=== PATIENT | female | born 1965 | race Caucasian/White ===

== ENCOUNTER → 2019-05-30 12:02 | Outpatient (BNVA) | payer OTHER, SELFPAY | PROVIDERS: Family Provider Nurse Practitioner Family; PCP Nurse Practitioner Family; Visit Provider Nurse Practitioner Family | DX: E89.0 Postprocedural hypothyroidism (principal); E55.9 Vitamin D deficiency, unspecified; Z79.899 Other long term (current) drug therapy; Z13.6 Encounter for screening for cardiovascular disorders; Z12.31 Encounter for screening mammogram for malignant neoplasm of breast; F33.0 Major depressive disorder, recurrent, mild; Z78.0 Asymptomatic menopausal state | CPT/HCPCS: 80053; 80061; 81001; 82306; 83036; 84443; 85025 ==

== ENCOUNTER 2019-07-04 10:56 | Outpatient (CLI) | payer OTHER, SELFPAY ==
--- NOTE | 2019-07-04 11:30 | MM_ITS ---
WS: [id number] BILATERAL SCREENING DIGITAL MAMMOGRAM WITH CAD HISTORY: breast cancer screening COMPARISON: 07/19/2015 Bilateral CC and MLO views submitted. Computer aided detection analyzed. Breast composition: The breasts are heterogeneously dense, which may obscure small masses. No suspici ous masses, microcalcifications or architectural distortion. MM/[id number] IMPRESSION: BI-RADS: 1-Negative FOLLOW UP: 1 Year Follow-up
== END 2019-07-04 10:57 | disposition home or self-care (01) ==
LOC: RADSHAW 10:56
PROVIDERS: Family Provider Nurse Practitioner Family; PCP Nurse Practitioner Family; Visit Provider Nurse Practitioner Family
DX: Z12.31 Encounter for screening mammogram for malignant neoplasm of breast (principal)
CPT/HCPCS: 77067

== ENCOUNTER → 2019-09-26 11:55 | Outpatient (BNVA) | payer OTHER, SELFPAY | PROVIDERS: Family Provider Nurse Practitioner Family; PCP Nurse Practitioner Family; Visit Provider Nurse Practitioner Family | DX: E07.9 Disorder of thyroid, unspecified (principal) | CPT/HCPCS: 82306; 84443 ==

== ENCOUNTER → 2020-01-02 11:15 | Outpatient (BNVA) | payer OTHER, SELFPAY | PROVIDERS: Family Provider Nurse Practitioner Family; PCP Nurse Practitioner Family; Visit Provider Nurse Practitioner Family | DX: E89.0 Postprocedural hypothyroidism (principal); F33.0 Major depressive disorder, recurrent, mild; F41.9 Anxiety disorder, unspecified | CPT/HCPCS: 84443 ==

== ENCOUNTER 2020-11-20 10:43 | Outpatient (CLI) | payer OTHER, SELFPAY ==
--- NOTE | 2020-11-20 11:00 | MM_ITS ---
WS: [id number] BILATERAL DIGITAL SCREENING MAMMOGRAPHY WITH CAD CLINICAL INFORMATION: Z12.31 - Encounter for screening mammogram for malignant neoplasm of breast HISTORY: Screening mammogram. No current complaints. COMPARISON: July 04, 2019 TECHNIQUE: Bilateral CC and MLO views. FINDINGS: The breasts are composed of heterogeneous fibroglandular density tissue, which can limit the detectio n of small underlying mass lesions. No suspicious mass, asymmetry, calcifications, or architectural d istortion. No evidence of malignancy. MM/[place] [id number] IMPRESSION: BI-RADS: 1-Negative FOLLOW UP: 1 Year Follow-up Recommend return to annual screening mammography.
== END 2020-11-20 10:44 | disposition home or self-care (01) ==
LOC: RADSHAW 10:46
PROVIDERS: PCP Nurse Practitioner Family; Visit Provider Nurse Practitioner Family
DX: Z12.31 Encounter for screening mammogram for malignant neoplasm of breast (principal)
CPT/HCPCS: 77067

== ENCOUNTER 2021-10-11 19:17 | Emergency (ER) | payer OTHER, SELFPAY ==
[2021-10-11 19:21] VITALS: BP 150/97; PULSE 75; RESP 16; TEMP 36.4; O2SAT 97; BMI 31.1
--- NOTE | 2021-10-11 19:34 | ED_ITS ---
HPI - Dental/Oral General: Chief complaint: Dental/Oral Stated complaint: Tooth pain Time Seen by Provider: 10/11/21 19:19 History of Present Illness: Patient is a 56-year-old female comes to the ED with dental pain. Patient has a crown on back left molar that cracked. She cracked one of her crowns when chewing on some food. She is here in the ED because she is having a lot of pain. Currently a 10 out of 10. Pain is located in back bottom left molar. She contacted her dentist and has an appointment set up with on November 06, but could possibly get her in earlier. Denies any other symptoms. Associated symptoms: Denies fever(s) or odynophagia Review of Systems Const: Denies: fever(s), chills or fatigue Eyes: Denies: change in vision or eye discomfort ENMT: Reports: dental pain; Denies: throat pain, odynophagia, nasal discharge or nasal congestion Card: Denies: chest pain, palpitations, edema, swelling of feet/ankles, dyspnea on exertion or orthopnea Resp: Denies: dyspnea, productive cough or non-productive cough GI: Denies: abdominal pain, nausea, vomiting, diarrhea, constipation or hematochezia : Denies: flank pain, dysuria or hematuria Musc: Denies: neck pain, back pain or extremity swelling Skin/Breast: Denies: rash or new lesions Neuro: Denies: headache(s), numbness in extremities or weakness in extremities PFS ED PFSH: Medical History Anxiety and depression Breast cancer screening by mammogram Depression Patient switched to Prozac in December 2019 Graves disease Patient was under the care of Dr. Gamboa in [place] prior to transferring to [facility]. [phone] Hypertension screen Hypothyroidism associated with surgical procedure Patient has history of Graves Disease, and surgical lobectomy of thyroid. Medication management Post-menopausal Patient takes daily estradiol without known adverse side effects. Surgical History History of lobectomy of thyroid Status post hysterectomy Family History Father Cancer Breast cancer Graves disease Unknown Cancer Social History Smoking and tobacco status: current every day smoker cigarettes Packs smoked per day: 0.5 Second hand smoke exposure: No Smoking risk assessment/counseling performed?: No Alcohol intake: never Desire information about alcohol rehabilitation?: No Counseling given: No Desire information about substance/drug rehabilitation?: No Counseling given: No Physical Exam Const: COMMON NORMALS: patient oriented x3 and alert GENERAL APPEARANCE: cooperative HENMT: COMMON NORMALS: normocephalic HEAD & SCALP: normocephalic MOUTH: Normal oral and palatal mucosa present TEETH & GINGIVA: Yes abnormal tooth and associated gingiva lower left third molar tender and other (Broken crown) THROAT: posterior oropharynx normal and uvula midline Neck/C-Spine: COMMON NORMALS: supple GENERAL: Yes normal visual inspection Resp: COMMON NORMALS: normal respiratory effort, No retractions, No use of accessory muscles and clear to auscultation bilaterally AUSCULTATION: clear to auscultation bilaterally Cardio: COMMON NORMALS: regular rate, regular rhythm, S1 normal heart sound present, S2 normal heart sound present, No gallops present (Cardio), No clicks present (Cardio), No murmurs present (Cardio) and Peripheral pulses 2+ throughout RATE: regular rate RHYTHM: regular rhythm HEART SOUNDS: S1 normal heart sound present and S2 normal heart sound present PERIPHERAL PULSES: Peripheral pulses 2+ throughout GI: COMMON NORMALS: Normal to inspection, nondistended, normoactive bowel so unds present, Soft to palpation, non-tender and no masses PALPATION: Yes Soft to palpation : COMMON NORMALS: Yes no CVA tenderness BLADDER/KIDNEY EXAM: Yes no CVA tenderness Back/Pelvis: COMMON NORMALS: no CVA tenderness Extremity: COMMON NORMALS: normal to inspection Neuro: COMMON NORMALS: patient oriented x3 and moves all extremities SENSORIUM/ORIENTATION: Yes alert Skin: GENERAL SKIN EXAM: dry skin Course Vital Signs: Vital signs: Vital Signs Temperature 97.5 F L 10/11/21 19:21 Pulse Rate 75 10/11/21 19:21 Respiratory Rate 16 10/11/21 19:51 Blood Pressure 150/97 10/11/21 19:21 Pulse Oximetry 97 10/11/21 19:21 [facility] - Dental/Oral Medical Decision Making Patient is a 56-year-old female comes to the ED with dental pain. She was chewing some food and cracked one of her crown's on the back lower left molar. She has an appointment set up with her dentist within the next month. Patient was given a dose of hydrocodone here in the ED along with some clindamycin. She was diagnosed with dental pain and was discharged home with a prescription for clindamycin and some hydrocodone for acute pain. She was told to follow-up with her dentist at her scheduled appointment for further evaluation of dental pain. Patient understood and agreed with plan. Discharge Plan Discharge Patient Disposition: Home Clinical Impression: Pain, dental Condition: Stable Prescriptions: New clindamycin HCl 150 mg capsule 300 mg PO QID 7 Days Qty: 56 0RF No Action clonazepam 0.5 mg tablet 0.5 mg PO BID 30 Days Qty: 60 4RF estradiol 2 mg tablet See Rx Instructions .ROUTE .COMPLEX 90 Days Qty: 90 1RF Dose Instruction: TAKE 1 TABLET BY MOUTH DAILY Rx Instructions: TAKE 1 TABLET BY MOUTH DAILY paroxetine HCl 20 mg tablet See Rx Instructions .ROUTE .COMPLEX Qty: 90 4RF Dose Instruction: TAKE 1 TABLET BY MOUTH DAILY Rx Instructions: TAKE 1 TABLET BY MOUTH DAILY thyroid (pork) [[place] Thyroid] 90 mg tablet See Rx Instructions .ROUTE .COMPLEX Qty: 90 0RF Dose Instruction: TAKE 1 TABLET BY MOUTH DAILY Rx Instructions: TAKE 1 TABLET BY MOUTH DAILY Discharge Orders: Discharge ED (Routine); Ordered 10/11/21 Ordered By: Ryan Rosado Referrals: RICHARD Almaraz, MERLY [Primary Care Provider] - Discharge Diet: Regular Discharge Activity: Resume usual activity Patient Instructions: Toothache (ED), Opioid Safety Activity Restrictions/Additional Instructions: Follow-up with dentist at your next scheduled appointment to address dental pain. Take medications as prescribed. Return to the ER or your medical provider if condition worsens. Please read and understand discharge instructions. Thank you for choosing [facility] for your healthcare needs today. Please realize this is an emergency room and that we are providing you with a medical screening exam and this may not be complete and all inclusive of all the testing and or work up that you may need to determine your ailment or severity of your illness. It is very important that you follow up as instructed or that you return to the Emergency Department should you have concerns or if your condition changes or worsens in any way. Coding Level of Care Code ED Director Of Hemophilia for Belgica Fwtonny Exam Comprehensive
[2021-10-11] MEDS: clindamycin 150 mg Capsule 300 MG PO (19:45)
[2021-10-11] MEDS: HYDROcodone-acetaminophen 7.5-325 mg Tablet 2 TAB PO (19:45)
[2021-10-11 19:51] VITALS: RESP 16
== END 2021-10-11 19:54 | disposition home or self-care (01) ==
PROVIDERS: Emergency Provider Physician Assistant; PCP Nurse Practitioner Family
DX: K08.89 Other specified disorders of teeth and supporting structures (principal)
CPT/HCPCS: 99283

== ENCOUNTER 2021-10-15 12:35 | Emergency (ER) | payer OTHER, SELFPAY ==
[2021-10-15 12:41] VITALS: BP 136/86; PULSE 74; RESP 18; TEMP 36.3; O2SAT 94; BMI 33.3
--- NOTE | 2021-10-15 12:59 | W.ED.DENTAL ---
HPI - Dental/Oral General: Chief complaint: Dental/Oral Stated complaint: tooth infection Time Seen by Provider: 10/15/21 12:44 Source: patient Mode of arrival: ambulatory Limitations: no limitations History of Present Illness: Patient is a 56-year-old female presents to ED today with a complaint of dental pain. Patient was seen at our facility recently and placed on clindamycin which she has been taking. She states she was able to contact Dr. Hart (dentist) was able to get her an earlier appointment and it is currently scheduled for October 21. Patient is requesting something for pain as she states she has tried several [id number] and conservative therapies at home without much relief. Patient states tooth was initially cracked but states she was eating a otero and when she bit down on the pit it cracked even further MD Complaint: tooth pain Teeth map: 1. fractured tooth Onset (ago): day(s) Duration: constant Severity: severe Severity scale (1-10): 10 Relieving factors: nothing Exacerbating factors: chewing and cold Context: trauma (mechanism) Associated symptoms: Reports no associated symptoms; Denies fever(s) Treatment prior to arrival: other (abx) Review of Systems Const: Denies: fever(s), chills, body aches, fatigue or malaise ENMT: Reports: dental pain; Denies: hoarseness, mouth pain, swelling of lips/tongue, oral sores or bleeding gums [facility] ED PFSH: Medical History Anxiety and depression Breast cancer screening by mammogram Depression Patient switched to Prozac in December 2019 Graves disease Patient was under the care of Dr. Gamboa in [place] prior to transferring to [facility]. [phone] Hypertension screen Hypothyroidism associated with surgical procedure Patient has history of Graves Disease, and surgical lobectomy of thyroid. Medication management Post-menopausal Patient takes daily estradiol without known adverse side effects. Surgical History History of lobectomy of thyroid Status post hysterectomy Family History Father Cancer Breast cancer Graves disease Unknown Cancer Social History Smoking and tobacco status: current every day smoker cigarettes Packs smoked per day: 0.5 Second hand smoke exposure: No Smoking risk assessment/counseling performed?: No Alcohol intake: never Desire information about alcohol rehabilitation?: No Counseling given: No Desire information about substance/drug rehabilitation?: No Counseling given: No Physical Exam Const: COMMON NORMALS: no acute distress, patient oriented x3, no limitations, alert and well nourished HENMT: FACE & SINUS: normal facial exam MOUTH: other (floor of mouth is soft/non-elevated) TEETH & GINGIVA: Yes fair dentition and Yes other (fractured L lower molar) THROAT: posterior oropharynx normal, tonsils normal and uvula midline Neck/C-Spine: GENERAL: Yes normal visual inspection, No anterior neck swelling and No submandibular swelling Neuro: COMMON NORMALS: patient oriented x3 SENSORIUM/ORIENTATION: Yes alert Course Vital Signs: Vital signs: Vital Signs Temperature 97.3 F L 10/15/21 12:41 Pulse Rate 74 10/15/21 12:41 Respiratory Rate 18 10/15/21 12:41 Blood Pressure 136/86 10/15/21 12:41 Pulse Oximetry 94 10/15/21 12:41 MDM - Dental/Oral Medical Decision Making Will write for small amount of pain medications with directions to use sparingly. Recommend follow-up with dentist at her current scheduled appointment. Discharge Plan Discharge Patient Disposition: Home Clinical Impression: Fracture of tooth, Toothache Condition: Stable Prescriptions: New hydrocodone-acetaminophen 5-325 mg tablet 1 tab PO Q6H PRN (Reason: pain) Qty: 12 0RF No Action clonazepam 0.5 mg tablet 0.5 mg PO BID 30 Days Qty: 60 4RF estradiol 2 mg tablet See Rx Instructions .ROUTE .COMPLEX 90 Days Qty: 90 1RF Dose Instruction: TAKE 1 TABLET BY MOUTH DAILY Rx Instructions: TAKE 1 TABLET BY MOUTH DAILY paroxetine HCl 20 mg tablet See Rx Instructions .ROUTE .COMPLEX Qty: 90 4RF Dose Instruction: TAKE 1 TABLET BY MOUTH DAILY Rx Instructions: TAKE 1 TABLET BY MOUTH DAILY thyroid (pork) [[place] Thyroid] 90 mg tablet See Rx Instructions .ROUTE .COMPLEX Qty: 90 0RF Dose Instruction: TAKE 1 TABLET BY MOUTH DAILY Rx Instructions: TAKE 1 TABLET BY MOUTH DAILY clindamycin HCl 150 mg capsule 300 mg PO QID 7 Days Qty: 56 0RF Discharge Orders: Discharge ED (Routine); Ordered 10/15/21 Ordered By: Ramila Mario Referrals: RICHARD Almaraz, ADVERTISING CAMPAIGN MANAGER [Primary Care Provider] - Patient Instructions: Toothache (ED) Coding Level of Care Code ED Instructor Trainer Canine Service for Belgica Puentes
== END 2021-10-15 13:29 | disposition home or self-care (01) ==
PROVIDERS: Emergency Provider Physician Assistant; PCP Nurse Practitioner Family
DX: K08.89 Other specified disorders of teeth and supporting structures (principal); S02.5XXA Fracture of tooth (traumatic), initial encounter for closed fracture; X58.XXXA Exposure to other specified factors, initial encounter
CPT/HCPCS: 99283

== ENCOUNTER → 2021-12-18 14:40 | Outpatient (BNVA) | payer OTHER, SELFPAY | PROVIDERS: PCP Nurse Practitioner Family; Visit Provider Nurse Practitioner | DX: F41.9 Anxiety disorder, unspecified (principal); Z79.899 Other long term (current) drug therapy; F32.9 Major depressive disorder, single episode, unspecified; E89.0 Postprocedural hypothyroidism; E55.9 Vitamin D deficiency, unspecified; Z78.0 Asymptomatic menopausal state | CPT/HCPCS: 80053; 80061; 82306; 84443; 85025 ==

== ENCOUNTER → 2022-10-10 10:29 | Outpatient (BNVA) | payer OTHER, SELFPAY | PROVIDERS: Visit Provider Nurse Practitioner | DX: M25.561 Pain in right knee (principal); E89.0 Postprocedural hypothyroidism | CPT/HCPCS: 73562; 84443 ==

== ENCOUNTER 2023-11-26 11:19 | Outpatient (CLI) | payer OTHER, SELFPAY ==
--- NOTE | 2023-11-26 11:36 | XRR_ITS ---
PROCEDURE INFORMATION: Exam: XR Right Knee Exam date and time: 11/26/2023 11:40 AM Age: 58 years old Clinical indication: Pain; Patient HX: Bone spur in right knee for over a year feels like left knee is compensating; Additional info: M17.9 - osteoarthritis of knee, unspecified TECHNIQUE: Imaging protocol: Radiologic exam of the right knee. Views: 3 views. COMPARISON: [place] [id number] 11/26/2023 11:40 AM FINDINGS: Bones/joints: No fracture or dislocation is noted. There is joint space narrowing with osteophyte formation most pronounced involving the medial and patellofemoral compartment. There are tibial spine and lateral compartment osteophytes. There is no evidence of a significant joint effusion. Soft tissues: Normal. XR/XR knee RT 3V* [id number] IMPRESSION: 1. Osteoarthritis.
--- NOTE | 2023-11-26 11:36 | XRR_ITS ---
PROCEDURE INFORMATION: Exam: XR Bilateral Knees, Standing, Anteroposterior Exam date and time: 11/26/2023 11:40 AM Age: 58 years old Clinical indication: Pain; Bilateral; Patient HX: Bone spur in right knee for over a year feels like left knee is compensating; Additional info: M17.9 - osteoarthritis of knee, unspecified TECHNIQUE: Imaging protocol: Radiologic exam of the bilateral knees. Views: Standing frontal. COMPARISON: CR XR knee RT 3V* [id number] 11/26/2023 11:40 AM FINDINGS: Bones/joints: There is joint space narrowing involving the medial compartments of both knees. There are lateral compartment and tibial spine osteophytes involving both knees. Soft tissues: Normal. XR/[place] [id number] IMPRESSION: Osteoarthritis.
== END 2023-11-26 11:20 | disposition home or self-care (01) ==
LOC: RAD 11:22
PROVIDERS: PCP Nurse Practitioner Family; Visit Provider Nurse Practitioner Family
DX: M17.9 Osteoarthritis of knee, unspecified (principal); M25.762 Osteophyte, left knee; M25.761 Osteophyte, right knee
CPT/HCPCS: 73562; 73565

== ENCOUNTER 2023-12-08 13:20 | Outpatient (CLI) | payer OTHER, SELFPAY ==
--- NOTE | 2023-12-08 13:28 | XR_ITS ---
WS: [id number] XR knees AP WB w BI lmt ORTH REASON FOR EXAM: bilateral knee pain FINDINGS: RIGHT KNEE: No fracture or focal bone lesion. Significant narrowing of the medial joint space with moderate subchondral sclerosis and small osteoph ytosis. Minimal narrowing of the lateral knee joint space with mild subchondral sclerosis and marginal osteop hytosis. Mild narrowing of the patellofemoral joint space with moderate subchondral sclerosis and osteophytosi s. Mild lateral elongation and shift with mild lateral angulation. Moderate opposing osteophytes of t he femoral condyles. XR/XR knees AP WB w BI lmt ORTH IMPRESSION: Moderate to significant osteoarthritis of the right knee. LEFT KNEE: No fracture or focal bone lesion. Significant narrowing of the medial knee joint space with moderate subchondral sclerosis and small osteophytosis. Mild narrowing of the lateral knee joint space with mild subchondral sclerosis and osteophytosis. Mild narrowing of the patellofemoral joint space with moderate subchondral scle rosis and mild lateral shift. Moderate opposing osteophytes of the femoral cond yles. IMPRESSION: Moderate to significant osteoarthritis of the left knee.
== END 2023-12-08 13:21 | disposition home or self-care (01) ==
LOC: RAD 13:21
PROVIDERS: PCP Nurse Practitioner Family; Visit Provider Nurse Practitioner Family
DX: M17.0 Bilateral primary osteoarthritis of knee (principal); M25.769 Osteophyte, unspecified knee; G89.29 Other chronic pain
CPT/HCPCS: 73560; 73565

== ENCOUNTER 2023-12-23 08:00 | Outpatient (CLI) | payer OTHER, SELFPAY ==
--- NOTE | 2023-12-23 08:00 | MM_ITS ---
WS: [id number] BILATERAL SCREENING DIGITAL TOMOSYNTHESIS MAMMOGRAM WITH CAD HISTORY: Z12.31 - Encounter for screening mammogram for malignant ... COMPARISON: 11/20/2020, 07/04/2019 Bilateral CC and MLO views with tomosynthesis and synthetic mammography submitted. Computer aided det ection analyzed. Breast composition: There are scattered areas of fibroglandular density. No suspicious masses, microc alcifications or architectural distortion. MM/[place] [id number] IMPRESSION: BI-RADS: 1-Negative FOLLOW UP: 1 Year Follow-up
== END 2023-12-23 08:05 | disposition home or self-care (01) ==
PROVIDERS: PCP Nurse Practitioner Family; Visit Provider Nurse Practitioner Family
DX: Z12.31 Encounter for screening mammogram for malignant neoplasm of breast (principal)
CPT/HCPCS: 77063; 77067

== ENCOUNTER 2024-03-13 08:56 | Emergency (ER) | payer OTHER, SELFPAY ==
[2024-03-13 09:20] VITALS: BP 149/104; PULSE 87; RESP 16; TEMP 36.6; O2SAT 96; BMI 27.4
--- NOTE | 2024-03-13 09:55 | W.ED.BACK ---
HPI - Back Pain/Injury General: Chief Complaint: Back Pain/Injury Stated Complaint: extreme back pain Time Seen by Provider: 03/13/24 09:52 History of Present Illness: Patient presents to the ER with complaints of midthoracic back pain between her shoulder blades times last 4 days. Patient does have a history of bulging disc in that area that she had cortisone shots before. Patient has no known recent injury. Patient is remodeling a house so she may have overused it. When the pain comes it is very sharp and severe to the point of making her very nauseous. Related Data Previous Rx's Medication Instructions Recorded thyroid (pork) 90 mg tablet See Rx Instructions .Route 10/14/22 ([place] Thyroid) .COMPLEX #90 tabs estradiol 2 mg tablet See Rx Instructions .Route 12/18/22 .COMPLEX #90 tabs tramadol 50 mg tablet 50 mg PO BID pain 14 days #28 tabs 11/25/23 paroxetine HCl 20 mg tablet See Rx Instructions .Route 12/01/23 .COMPLEX #30 tabs meloxicam 7.5 mg tablet 7.5 mg PO .Twice daily #14 tabs 03/13/24 ondansetron HCl 4 mg tablet 4 mg PO Q8H PRN nausea and 03/13/24 vomiting #14 tabs Allergies Allergy/AdvReac Type Severity Reaction Status Date / Time No Known Allergies Allergy Verified 12/08/23 14:19 Review of Systems General: Reports: 10 or more systems reviewed and unremarkable except in HPI and below PFSH ED PFSH: Medical History Encounter for screening for cardiovascular disorders Bilateral knee pain Degenerative joint disease of knee Right knee pain Right knee DJD Breast cancer screening by mammogram Medication management Hypertension screen Anxiety and depression Hypothyroidism associated with surgical procedure Patient has history of Graves Disease, and surgical lobectomy of thyroid. Post-menopausal Patient takes daily estradiol without known adverse side effects. Graves disease Patient was under the care of Dr. Gamboa in [place] prior to transferring to [facility]. [phone] Depression Patient switched to Prozac in December 2019 Surgical History Status post hysterectomy History of lobectomy of thyroid Family History Father Cancer Breast cancer Graves disease Unknown Cancer Social History Smoking and tobacco/nicotine status: never used tobacco/nicotine Second hand smoke exposure: No Alcohol intake: never Substance/Drug Use: never Physical Exam Const: COMMON NORMALS: no acute distress, average body habitus, patient oriented x3, no limitations, healthy appearing, alert and well nourished HENMT: COMMON NORMALS: normocephalic, atraumatic, hearing grossly normal bilaterally, external ears normal, Normal external nose present and moist oral mucous membranes HEAD & SCALP: normocephalic and atraumatic NOSE: Normal external nose present EXTERNAL EAR: Yes external ears normal Neck/C-Spine: COMMON NORMALS: full ROM, no lymphadenopathy, supple, no meningeal signs, no JVD and Thyroid normal THYROID: Thyroid normal Chest: COMMONS NORMALS: normal inspection of the chest and normal palpation of entire chest wall Resp: COMMON NORMALS: normal respiratory effort, No retractions, No use of accessory muscles and clear to auscultation bilaterally AUSCULTATION: clear to auscultation bilaterally Cardio: COMMON NORMALS: no JVD, regular rate, regular rhythm, S1 normal heart sound present, S2 normal heart sound present, No gallops present (Cardio), No clicks present (Cardio), No murmurs present (Cardio) and No rub (Cardio) RATE: regular rate RHYTHM: regular rhythm HEART SOUNDS: S1 normal heart sound present and S2 normal heart sound present GI: COMMON NORMALS: Normal to inspection, nondistended, normoactive bowel sounds present, Soft to palpation, non-tender, No hepatosplenomegaly present and no masses PALPATION: Yes Soft to palpation and Yes No hepatosplenomegaly present Back/Pelvis: OTHER: Tender to palpate mid thoracic area midline worse on the right side than left. Neuro: COMMON NORMALS: patient oriented x3 SENSORIUM/ORIENTATION: Yes alert MENINGEAL SIGNS: Yes no meningeal signs Course Vital Signs: Vital signs: Vital Signs Temperature 98 F 03/13/24 09:20 Pulse Rate 87 03/13/24 09:20 Respiratory Rate 16 03/13/24 09:20 Blood Pressure 149/104 03/13/24 09:20 Pulse Oximetry 96 03/13/24 09:20 Oxygen Delivery Me thod Room Air 03/13/24 09:20 MDM - Back Pain/Injury Medical Decision Making Thoracic spine x-ray read by radiologist as negative for acute fracture, patient given Toradol, Norflex and Zofran, patient is resting much more comfortably with no nausea. Patient be discharged home. Medical Records I reviewed the patient's medical records. Labs I reviewed the patient's lab results. Radiology Impressions Thoracic Spine X-Ray 03/13/24 09:57 IMPRESSION: 1. Possible trace scoliotic curvature convex left. 2. Minimal spondylosis. All radiology interpretation(s) finalized by discharge Discharge Plan Discharge Patient Disposition: Home Clinical Impression: Acute thoracic back pain Qualifiers: Back pain laterality: unspecified Qualified Code(s): M54.6 - Pain in thoracic spine Condition: Stable Prescriptions: New ondansetron HCl 4 mg tablet 4 mg PO Q8H PRN (Reason: nausea and vomiting) Qty: 14 0RF meloxicam 7.5 mg tablet 7.5 mg PO .Twice daily Qty: 14 0RF No Action triamcinolone acetonide 40 mg/mL suspension 40 mg IM ONCE Qty: 1 0RF ketorolac 30 mg/mL solution 60 mg IM ONCE Qty: 2 0RF tramadol 50 mg tablet 50 mg PO BID 14 Days Qty: 28 0RF [place] Thyroid 90 mg tablet See Rx Instructions .ROUTE .COMPLEX Qty: 90 3RF Dose Instruction: TAKE 1 TABLET BY MOUTH DAILY Rx Instructions: TAKE 1 TABLET BY MOUTH DAILY estradiol 2 mg tablet See Rx Instructions .ROUTE .COMPLEX Qty: 90 3RF Dose Instruction: TAKE 1 TABLET BY MOUTH DAILY Rx Instructions: TAKE 1 TABLET BY MOUTH DAILY paroxetine HCl 20 mg tablet See Rx Instructions .ROUTE .COMPLEX Qty: 30 11RF Dose Instruction: TAKE 1 TABLET BY MOUTH DAILY Rx Instructions: TAKE 1 TABLET BY MOUTH DAILY Discharge Orders: Discharge ED (Routine); Ordered 03/13/24 Ordered By: Luis Muller Referrals: RICHARD Almaraz, TECHNICAL LABORATORY ASST [Primary Care Provider] - 1 week Patient Instructions: Back Pain (ED) Activity Restrictions/Additional Instructions: Your evaluation in the ER that included thoracic back x-rays that were read by the radiologist as negative. You have been given pain medicine and nausea medicine and as well as both these have been called to your pharmacy. He will be discharged to follow-up with your primary care doctor within next 7 days for further evaluation treatment. Coding Level of Care Code ED Humanities Department Chair for Belgica Puentes
--- NOTE | 2024-03-13 09:57 | XRR_ITS ---
PROCEDURE INFORMATION: Exam: XR Thoracic Spine Exam date and time: 03/13/2024 10:32 AM Age: 59 years old Clinical indication: Pain in thoracic spine; Patient HX: PT presents with back pain. Patient states back pain started 4 days ago. Patient states upper back, around midshoudler. Patient states feels like it did before when i had a herniated disc. Patient states n/v due to pain and inability to keep anything down. Patient denies mechanism of injury. ; Additional info: Midthoracic pain no known injury TECHNIQUE: Imaging protocol: Radiologic exam of the thoracic spine. Views: 3 views. COMPARISON: No relevant prior studies available. FINDINGS: Bones/joints: There are 12 rib-bearing thoracic vertebral bodies. There may be a trace scoliotic curvature convex left. No subluxations are identified. No fractures are noted. There is minimal disc space narrowing with small osteophytes involving a few midthoracic disc space levels. Pedicles appear to be intact. Bony mineralization is decreased. Soft tissues: Unremarkable. XR/XR thoracic spine 2V [id number] IMPRESSION: 1. Possible trace scoliotic curvature convex left. 2. Minimal spondylosis.
[2024-03-13] MEDS: ondansetron 4 MG Tablet PO (10:06)
[2024-03-13] MEDS: ketorolac 60 mg/2 mL INJ IM (10:07)
[2024-03-13] MEDS: orphenadrine 30 mg/mL Inj 2 mL 60 MG IM (10:11)
[2024-03-13 11:50] VITALS: BP 142/87; PULSE 71; O2SAT 97
== END 2024-03-13 11:52 | disposition home or self-care (01) ==
PROVIDERS: Emergency Provider Emergency Medicine; PCP Nurse Practitioner Family
DX: M54.6 Pain in thoracic spine (principal)
CPT/HCPCS: 72070; 96372; 99284; J1885; J2360; Q0162

== ENCOUNTER 2024-04-07 06:46 | Outpatient (CLI) | payer OTHER, SELFPAY ==
--- NOTE | 2024-04-07 07:01 | US_ITS ---
WS: [id number] RIGHT UPPER QUADRANT ULTRASOUND HISTORY: ABNORMAL LFT'S COMPARISON: None available. Liver: 15.4 cm in length. Normal size liver and echogenicity. No bile duct dilatation or mass. Portal Vein: Normal hepatopetal flow with monophasic waveform. Gallbladder: Large amount of shadowing from the RIGHT upper quadrant in the expected location of the gallbladder. Consistent with a stone filled gallbladder. No pericholecystic fluid. The adjacent wall is top normal size. CBD: 0.4 cm Pancreas: Normal size and echogenicity. Right kidney: 10.1 cm in length. Normal size kidney. No hydronephrosis. Complex cyst in the upper flavio e measures 4.3 x 4.3 x 4.1 cm. There are a few septations within the cyst. No increased vascularity. Aorta and IVC: Unremarkable abdominal aorta and IVC. No ascites. US/US abdomen limited [id number] IMPRESSION: 1. Stone filled gallbladder without evidence for acute cholecystitis. Numerous stones distended gallbladder. 2. No hepatobiliary dilatation. 3. Complex cyst upper pole RIGHT kidney, 4.3 x 4.3 x 4.1 cm. There are few sep tations present. This can be further evaluated by renal mass protocol by MRI or CT.
== END 2024-04-07 06:47 | disposition home or self-care (01) ==
PROVIDERS: PCP Nurse Practitioner Family; Visit Provider Family Medicine
DX: K80.20 Calculus of gallbladder without cholecystitis without obstruction (principal); N28.1 Cyst of kidney, acquired; N28.89 Other specified disorders of kidney and ureter; R94.5 Abnormal results of liver function studies
CPT/HCPCS: 76705

== ENCOUNTER 2024-04-08 08:43 | Outpatient (CLI) | payer OTHER, SELFPAY ==
--- NOTE | 2024-04-08 08:47 | CT_ITS ---
WS: [id number] LDCT LUNG CANCER SCREENING HISTORY: HX OF TOBACCO USE TECHNIQUE: Axial imaging performed from the apices to 1 cm below the costophrenic angles. Coronal and sagittal reformats are submitted with axial MIP series. All CT scans at [facility] use at least one of these dose optimization techniques: automated exposure control; mA and/or kV adjustment per patient size (includes targeted exams where dose is matched to clinical indication); or iterativ e reconstruction. DLP: 59.91 mGy.cm DIvol: Mean CTDIvol: 1.20 (mGy) COMPARISON: None available. Diagnostic quality: Satisfactory Lungs: Mild pulmonary hyperinflation. No pneumonia or nodules. No endobronchial lesions or groundglas s attenuation. Heart: Normal size heart with no pericardial effusion.. Other findings: Normal size aorta. Normal size pulmonary artery. No adenopathy. No adrenal mass. RIGH T renal cyst 4.[address]/CT lung screening [id number] IMPRESSION: LUNG-RADS: 1-Negative FOLLOW UP: 12 Month: Continue annual screening with LDCT OTHER FINDINGS (S MODIFIER): None.
== END 2024-04-08 08:44 | disposition home or self-care (01) ==
LOC: RAD 08:44
PROVIDERS: PCP Nurse Practitioner Family; Visit Provider Family Medicine
DX: Z12.2 Encounter for screening for malignant neoplasm of respiratory organs (principal); N28.1 Cyst of kidney, acquired
CPT/HCPCS: 71271

== ENCOUNTER → 2024-09-27 13:18 | Outpatient (BNVA) | payer OTHER, SELFPAY | PROVIDERS: PCP Nurse Practitioner Family; Visit Provider Student in an Organized Health Care Education/Training Program | DX: M17.11 Unilateral primary osteoarthritis, right knee (principal); M25.561 Pain in right knee | CPT/HCPCS: 73560; 73565 ==

== ENCOUNTER 2024-10-19 13:39 | Outpatient (CLI) | payer OTHER, SELFPAY ==
--- NOTE | 2024-10-19 13:45 | CT_ITS ---
WS: [id number] CT RIGHT KNEE, NONCONTRAST TECHNIQUE: Noncontrast CT of the RIGHT knee to include the RIGHT hip and ankle. CLINICAL INFORMATION: RIGHT TOTAL KNEE ARTHROPLASTY COMPARISON: None. DLP: 955.[address] scans at [facility] use at least one of these dose optimization techniques: automated exposure control; mA and/or kV adjustment per patient size (includes targeted exams where dose is matched to clinical indication); or iterative reconstruction. FINDINGS: Advanced tricompartmental arthritis RIGHT knee worse in the medial joint compartment. Small suprapatellar effusion. Hypertrophic patella. Soft tissue edema. Sigmoid diverticulosis.. CT/CT knee RT ANTONIO [id number] IMPRESSION: Images obtained for preoperative purposes.
== END 2024-10-19 13:40 | disposition home or self-care (01) ==
LOC: RAD 13:40
PROVIDERS: PCP Nurse Practitioner Family; Visit Provider Student in an Organized Health Care Education/Training Program
DX: M25.561 Pain in right knee (principal); M17.11 Unilateral primary osteoarthritis, right knee; K57.30 Diverticulosis of large intestine without perforation or abscess without bleeding; M25.562 Pain in left knee
CPT/HCPCS: 73700

== ENCOUNTER → 2024-10-31 11:27 | Outpatient (BNVA) | payer OTHER, SELFPAY | PROVIDERS: PCP Nurse Practitioner Family; Visit Provider Family Medicine | DX: Z01.818 Encounter for other preprocedural examination (principal) | CPT/HCPCS: 80053; 81003; 85025 ==

== ENCOUNTER 2024-11-14 09:00 | Observation (INO) | payer OTHER, SELFPAY ==
--- NOTE | 2024-11-03 12:45 | ANES.PREANE2 ---
Pre-Anesthetic Assessment Height/Weight: Height 5 ft 2 in Preop Diagnosis: knee osteoarthritis Operation Date: 11/14/24 07:00 Proposed Procedures p Jairo Robot Total Knee Arthroplasty(Right) - Nico Rosado, Was Beta Alisha taken within 24 hours: N/A Was Clonidine taken within 24 hours: N/A Social Tobacco and No alcohol Exam alert, oriented x 3, clear to auscultation bilaterally and regular rate & rhythm Airway Submandibular: within normal limits Cervical ROM: within normal limits Mallampati: Class III Dentition: full Anesthetic Plan ASA status: 3 Anesthesia: MAC and Regional (specify below) Other: No prior issues with anesthesia Plan to be n.p.o. at midnight prior to surgery Patient denies any cardiac issues Current smoker Labs reviewed and acceptable for procedure METs greater than 4 Spinal anesthesia with peripheral nerve block Medications/Allergies Home Medications ?Medication ?Instructions ?Recorded ?Confirmed ?Last Taken ?Type thyroid (pork) 90 mg tablet See Rx Instructions .Route 10/14/22 10/31/24 Unknown Rx ([place] Thyroid) .COMPLEX #90 tabs tramadol 50 mg tablet 50 mg PO BID pain 14 days #28 tabs 11/25/23 10/31/24 Unknown Rx methocarbamol 500 mg tablet 500 mg PO TID 14 days #42 tabs 09/27/24 10/31/24 Unknown Rx tramadol 50 mg tablet 50 mg PO Q8H PRN pain #21 tabs 09/27/24 10/31/24 Unknown Rx tramadol 50 mg tablet 50 mg PO Q4H PRN pain 5 days #30 10/19/24 10/31/24 Unknown Rx tabs escitalopram oxalate 20 mg tablet 20 mg PO QDAY 10/31/24 10/31/24 Unknown History Allergies Allergy/AdvReac Type Severity Reaction Status Date / Time minoxidil Allergy Intermediate Unknown Verified 10/31/24 11:37 meloxicam Allergy ADR-Nausea Verified 10/31/24 11:37 [facility] Anesthesia Medical History Encounter for screening for cardiovascular disorders Bilateral knee pain Degenerative joint disease of knee Right knee pain Right knee DJD Breast cancer screening by mammogram Medication management Hypertension screen Anxiety and depression Hypothyroidism associated with surgical procedure Patient has history of Graves Disease, and surgical lobectomy of thyroid. Post-menopausal Patient takes daily estradiol without known adverse side effects. Graves disease Patient was under the care of Dr. Gamboa in [place] prior to transferring to [facility]. [phone] Depression Patient switched to Prozac in December 2019 Surgical History Status post hysterectomy History of lobectomy of thyroid Family History Father Cancer Breast cancer Graves disease Unknown Cancer Social History Smoking and tobacco/nicotine status: never used tobacco/nicotine Second hand smoke exposure: No Alcohol intake: never Substance/Drug Use: never
[2024-11-14] VITALS (29 sets, daily range): BP systolic 76–115; BP diastolic 37–77; PULSE 60–91; RESP 12–24; TEMP 36.3–37; O2SAT 92–97; BMI 27.4
--- NOTE | 2024-11-14 06:06 | P.ANESUD_ITS ---
Pre-Anesthetic Update Pre-Anesthetic Assessment: Date of Surgery/Procedure: 11/14/24 Preop Irlanda gnosis: knee osteoarthritis Proposed Procedure: Operation Date: 11/14/24 07:00 Proposed Procedures p Jairo Robot Total Knee Arthroplasty(Right) - Nico Rosado DO Changes from Pre-Anesthetic Assessment: No changes since patient was seen in preop clinic. Plan for spinal anesthesia with peripheral nerve block. NPO since yesterday evening
[2024-11-14 06:44] LABS: Hematocrit 44.9 % (36-47); Hemoglobin 15.20 g/dL (11.27-16.99); Mean Corpuscular HGB Conc 33.9 g/dL (30-55); Mean Corpuscular Hemoglobin 30.6 pg (27-33); Mean Corpuscular Volume 90.5 fl (85-98); Nucleated Red Blood Cells % 0 %; Platelet Count 288 10^3/cmm (157-399); Red Blood Count 4.96 10^6/uL (3.85-5.65); White Blood Count 10.12 10^3/uL (3.29-11.43)
[2024-11-14] MEDS: acetaminophen 1,000 MG/100 ML PIGGYBACK 400 MG IV ×3 (06:48→23:16)
[2024-11-14 06:58] LABS: Anion Gap 15.2 (5-19); Blood Urea Nitrogen 11 mg/dL (6-20); Calcium 9.4 mg/dL (8.5-10.5); Carbon Dioxide 23 mmol/L (22-29); Chloride 104 mmol/L (98-107); Creatinine Clr Calc Pharmacy 91.2830; Glucose 95 mg/dL (65-115); Osmolality Calculated 285 mOsm/kg (285-295); Potassium 4.2 mmol/L (3.5-5.1); Sodium 138 mmol/L (136-145)
--- NOTE | 2024-11-14 06:59 | W.PM.OPSUD ---
Surgery/Procedure H&P Update DATE OF PROCEDURE: November 14, 2024 DATE H&P PERFORMED: 10/31/24 H&P UPDATE INFORMATION: I have reviewed H&P completed within last 30 days, I have examined patient prior to procedure and No changes to prior documentation PREOP DIAGNOSIS: Right knee osteoarthritis PRIMARY INDICATION FOR PROCEDURE: Right knee DJD PLANNED PROCEDURE: Operation Date: 11/14/24 07:00 Proposed Procedures p Jairo Robot Total Knee Arthroplasty(Right) - Nico Rosado DO
[2024-11-14] MEDS: ceFAZolin 2,000 MG in sodium chloride 0.9% (plus) 50 ML 100 MG IV ×3 (07:00→22:15)
--- NOTE | 2024-11-14 07:31 | ANES.PROC ---
Anesthesia Procedures Procedure/Date: 11/14/24 Nerve Block ^: Nerve Block 1: Main Anesthesia: spinal anesthesia block Time Out Performed: Yes Consent: requested by attending/covering physician and from patient Nerve block location: adductor canal Anesthesia monitors applied: pulse oximetry, EKG, BP cuff and oxygen Nerve block position: supine Anesthetic Used: ropivicaine 0.5% Amount of anesthesia used (mL): 15 Ultrasound used to: recognize landmarks Nerve Stimulator Used?: No Interscalene/Femoral BLK: other needle (pjunk 4inch) Injection: neg aspiration of heme Patient Tolerated Procedure: well Complications: none Additional Comments: decadron 4mg
[2024-11-14] MEDS: tranexamic acid 1,000 mg/10mL SDV 1000 MG IV (07:32)
[2024-11-14] MEDS: tranexamic acid 1,000 mg/10mL SDV 1000 MG XX (08:20)
[2024-11-14] MEDS: ROPivacaine 0.2% Premix 100 mL 200 MG XX (08:20)
--- NOTE | 2024-11-14 09:13 | XR_ITS ---
WS: [id number] XR knee RT 1-2V [id number] REASON FOR EXAM: Status post right TKA FINDINGS: Total right knee arthroplasty. Components of the arthroplasty are intact and in proper position and alignment. No focal bony abnormality. XR/XR knee RT 1-2V [id number] IMPRESSION: Total right knee arthroplasty without abnormality.
--- NOTE | 2024-11-14 09:14 | P.BOP_ITS ---
Date of Procedure: 11/14/2024 Surgeon: Nico Rosado DO Process Server(s): Ryan Rosado PA-C Procedure(s) performed: Right total knee arthroplasty?Jairo robotic assisted Findings of the procedure(s): Procedure went as planned without issues or complications Estimated blood loss: 25 mL Specimen(s) removed: Tibia femur and patellar bone cuts removed Post-operative diagnosis: Right knee DJD
--- NOTE | 2024-11-14 09:16 | PM.OP ---
Operative Report Date of procedure: November 14, 2024 Surgeon: Nico Rosado DO Fur Floor Worker: Ryan Rosado PA-C: PA was necessary for assistance in this case with leg positioning retraction and protection of neurovascular structures as well as assistance in implantation wound closure and dressing application. Procedure: Preoperative diagnosis: Right knee degenerative joint disease Post-op diagnosis: Same Procedure done: Right total knee arthroplasty, cemented?robotic assisted Jairo Implants: Alan triathlon size 4 femur CR cemented?Right [place] triathlon size? 4 tibia universal baseplate cemented [place] triathlon symmetric patella size 31 mm Alan triathlon polyethylene 10mm Surgeon: Nico Rosado DO Estimated blood?loss: 25 mL Tourniquet 54 minutes IV fluids: 1400 mL Urine output: 275mL Complications: None Condition: stable Disposition: floor Brief History: Patient is a 59-year-old female with with chronic?Right knee degenerative joint disease.? Patient has been worked up in the outpatient setting in the orthopedic office at this point time through shared decision making given? [id number] arthritis as well as failed conservative treatment, and pt would?like to proceed with a?Right total knee arthroplasty.? Through shared decision making elected to proceed with surgical intervention for?Right total knee arthroplasty with Jairo robotic assisted.? We talked about continued conservative treatment and surgical intervention as far as the risk benefits complications alternatives surgical and nonsurgical treatment options.? At this point time understanding patient risks with surgery he agrees to proceed with surgical intervention.? Once again? risk with surgery include but are not?limited to make it better make it worse blood clot, heart attack, stroke, on the table, infection, injury to nerves or vessels, persistent pain, arthrofibrosis, implant failure.? Understanding these risks patient agrees to proceed with surgical intervention consent was obtained in the preoperative holding area.? All questions answered. Procedure: Patient was seen and evaluated in the preoperative holding area.? Consent was reviewed and signed with patient with plan for?Right total knee arthroplasty.? All questions answered.? Correct extremity marked.? Patient seen and evaluated by the anesthesia department and once cleared for surgery was taken back to the operative suite.? Patient was placed into a supine position on the OR table.? All bony prominences were well-padded.? Patient was appropriately secured to the bed.? Patient underwent anesthesia per the anesthesia department.? Patient received spinal anesthesia and? Pérez catheter was placed.? A nonsterile tourniquet was applied to the?Right thigh.? At this point in time a final timeout performed.? Patient received appropriate preoperative antibiotics and TXA. Next the?Right?lower extremity was then prepped and draped in standard orthopedic fashion. Esmarch tourniquet was used exsanguinate the?Right?lower extremity.? Tourniquet was insufflated to 250 mmHg. A standard anterior incision was made over midline of the knee.? Sharp scalpel excision through skin and subcutaneous tissue full-thickness skin flaps were made.? Fascia was elevated off of the extensor retinaculum was stable with medial parapatellar arthrotomy was then made.? The performed standard sequential releases..? Immediately on entry into the joint patient was found to have severe eburnated bone and tricompartmental arthritic changes noted.? With significant osteophyte formation.? Next the the patella was then stuffed and the knee was then flexed.?? Rubi was placed superiorly around the anterior aspect of the femur this was freed of synovium and I subsequently then placed by 2 femur pins to establish my femur arrays for the Jairo robot.? These were then placed bicortically and? femur array was then appropriately secured with appropriate visualization.? Next attention was turned towards the tibial rays.? These were then drilled sequentially bicortically in parallel fashion and intraincisional.? I then placed my guide as well as my tibial array on in place.? This was appropriately secured and had excellent visualization with the Jairo robot.? Next the tibial checkpoint as well as femur checkpoint were then placed.? At this point time I then subsequently established my head center as well as my medial?lateral malleoli as well as my checkpoints.? Next utilizing standard Jairo technology I then mapped out the appropriate points and confirmation points around the femur as well as the tibia in standard fashion.? Once this was then done I then removed all osteophytes in preparation for dynamic testing.? All osteophytes were removed as well as I removed the ACL and the PCL was excised due to its significant tearing and degeneration noted.? At this point time the knee was brought into full extension and we performed our standard evaluation of our gap balancing stressing his?ligaments and extension as well as flexion appropriate adjustments were made to have appropriate gap balancing in both flexion and extension.? This plan for final cuts. We are able to correct patient's varus deformity within patient's ligamentous tolerances. We get a preoperative plan evaluating our implants which was a size 4 femur and a size 4 tibia.? Next we brought in the Jairo robot and sequentially made our femur cuts.? All excess bony cuts were then removed.? Finally we made our tibial cut.? Once this was done a standard PCL retractor was then placed into this position I excised the medial and?lateral meniscus.? The tibial cut was then subsequently removed all excess bony debris was removed.? I then utilized a?lamina tag marker and remove the posterior osteophytes.? At this point time sized the tibia and confirmed this was a size 4.? I utilized our blunt probe to establish rotation of tibial implant.? Once this was done I then placed my tibia size 4 trial in appropriate position and then subsequently placed tibial pins to hold this into place placed trialed up to a size 10 mm poly as well as a size 4 femur which was appropriately impacted in place knee was then subsequently brought into extension. Trials were then assessed,? this was stable with varus valgus stress in extension as well as had symmetrical translation when brought into flexion demonstrating symmetrical gaps. I had excellent balance gaps in flexion and extension with varus and valgus stresses.? At this point I was satisfied with these implants these were then verified and opened on the back table size 4 tibia, size4 femur,? size 10mm polythickness.? We did confirm appropriate gap balancing and stresses as well as alignment utilizing? Jairo and were satisfied with this plan.? ?At this point time with my trials in place I then towel clip the patella everted this made appropriate measurements subsequently utilizing freehand technique performed by patellar resurfacing this was confirmed to be appropriate resection and subsequently sized to be a 31 mm symmetric.? My drill peg guides were then clamped and appropriate position and appropriate position in the patella for appropriate tracking and parallel with the joint.? Pegs were drilled trial implant was placed and the knee was then subsequently ranged and found to have excellent patellar tracking.? Femur pegs were then drilled.? All checkpoints as well as guidepins and arrays were removed and appropriate counts made.? Satisfied with our tibial placement rotation I then utilized the keel punch and prepped the tibia.? At this point time all of our trial implants were removed.? The wound bed? was thoroughly irrigated and dried and prepped for cementation.? Cement was mixed on the back table.? Once cement was ready this was then covered onto the tibia and the tibial baseplate was then impacted and all excess cement was removed.? Next the polyethylene was then impacted into place on the tibial baseplate.? Next cement was placed onto the femur as well as under the femur implants and impacted in to place and all excess cement was extruded and removed.? Knee was taken into full extension? to clear all excess cement was removed.? Warm saline was placed over the joint.? I then towel clip patella and dried for cementation. cemented the patella into place.? This was all clamped and the cement was allowed to cure.? Thorough irrigation performed with pulse?lavage.? I then placed my periarticular injection while the cement was curing.? Once cured the knee was taken through range of motion and had excellent stability and gaps were balanced in flexion and extension.? Tourniquet was then deflated. hemostasis satisfactory with electrocautery.? Next I then subsequently closed the capsule with Ethibond suture as well as a running strata fix suture.? Knee was then taken through range of motion 30 times.? Next the skin was then closed in?layered fashion of running stratifix sutures of deep and subcutenous tissue and skin.? ?closed in flexion and Prineo glue was then placed over the incision this allowed to cure.? Incision was covered with Silverlon, with ABDs soft roll and Manuel wrap.? Patient was then awakened from anesthesia and taken to PACU in stable condition. Disposition: Patient taken to PACU in stable condition will be admitted to the floor for pain control PT/OT weight-bear as tolerated?Right?lower extremity dressing changes as needed, DVT prophylaxis. Pain control. Patient will receive appropriate postoperative antibiotics. patient will be seen today by the internal medicine team for medical management.? Patient will follow up with the office in 2 weeks.? Patient understands agrees with current plan.? All questions answered.
--- NOTE | 2024-11-14 09:32 | PC.NURSE ---
0930- ALONZO Amaya notified BP 76/45.
--- NOTE | 2024-11-14 09:34 | PM.PACU ---
PACU note Narrative: Patient is a 59-year-old female that just underwent a right total knee arthroplasty. Pt transferred to PACU in stable condition. Dressing is dry. pt is awake and alert. Distal pulses are palpable toes are warm and well-perfused. Cap refill is normal and under 2 seconds. Unable to further assess any motor or sensory function to right leg due to residual spinal block. Pain is controlled. Exam: awake Disposition: discharged
--- NOTE | 2024-11-14 09:49 | PC.NURSE ---
0945-Dr. Chery notified BP 88/37.
--- NOTE | 2024-11-14 10:25 | ANE.PACU2 ---
Inpatient post-anesthesia follow up: Airway intact: Yes Vital signs: Temperature 97.6 F Pulse Rate 70 Respiratory Rate 17 Blood Pressure 93/61 Pulse Oximetry 97 Oxygen Delivery Me thod Room Air Oxygen Flow Rate 2 Fraction of Inspir ed Oxygen Hydration adequate: Yes Nausea and vomiting: No Pain level: 1 Mental status: Baseline
--- NOTE | 2024-11-14 11:58 | PM.CONSULT ---
Providers/Reason For Consult Consulting Physician/Specialty*: Hospitalist Reason for Consult*: Medical management Attending Physician: Nico Rosado DO Primary Care Provider: Aly Baron MD History of Present Illness History of Present Illness Kanika Blackmon is a 59 year old patient with a history of right knee degenerative joint disease, anxiety/depression, Graves? disease, and [unclear] heart disease with prior heart attack, presenting on the first post-operative day after a right total knee arthroplasty (performed under spinal anesthesia, estimated blood loss 25 mL). The surgical team?s tentative plan is for discharge home tomorrow and initiation of apixaban (Eliquis) for venous thromboembolism prophylaxis. Current medications include tramadol for knee pain and escitalopram for depression/anxiety. The hospitalist discussed the additive bleeding risk of combining apixaban, tramadol, and escitalopram and offered switching tramadol to an alternative (e.g., hydrocodone). The patient denies hematuria, melena, black stools, or other bleeding, and reports constipation. Review of systems otherwise negative for fever, chills, sore throat, rashes, leg swelling, chest pain, or respiratory symptoms. The patient is a former smoker, does not currently drink alcohol, denies substance abuse, and lives with someone at home. Review of Systems Const: Denies: fever(s), chills, body aches or malaise ENMT: Denies: throat pain Card: Denies: chest pain, edema, pre-syncope or dyspnea on exertion Resp: Denies: dyspnea, productive cough, change in phlegm color or hemoptysis GI: Denies: abdominal pain, nausea, vomiting, diarrhea, constipation, hematochezia or melena : Denies: flank pain, urinary frequency or hematuria Musc: Denies: back pain, joint swelling or joint redness Skin/Breast: Denies: rash or new lesions Neuro: Denies: headache(s) or confusion Medications/Allergies Home Medications ?Medication ?Instructions ?Recorded ?Confirmed ?Last Taken ?Type methocarbamol 500 mg tablet 500 mg PO TID 14 days #42 tabs 09/27/24 11/14/24 11/13/24 Rx tramadol 50 mg tablet 50 mg PO Q4H PRN pain 5 days #30 10/19/24 11/14/24 11/13/24 Rx tabs escitalopram oxalate 20 mg tablet 20 mg PO QDAY 10/31/24 11/14/24 11/12/24 History thyroid (pork) 90 mg tablet 90 mg PO DAILY 11/10/24 11/14/24 11/13/24 History ([place] Thyroid) Allergies Allergy/AdvReac Type Severity Reaction Status Date / Time minoxidil Allergy Intermediate Unknown Verified 10/31/24 11:37 meloxicam Allergy ADR-Nausea Verified 10/31/24 11:37 PFSH Acute PFSH: Medical History Encounter for screening for cardiovascular disorders Bilateral knee pain Degenerative joint disease of knee Right knee pain Right knee DJD Breast cancer screening by mammogram Medication management Hypertension screen Anxiety and depression Hypothyroidism associated with surgical procedure Patient has history of Graves Disease, and surgical lobectomy of thyroid. Post-menopausal Patient takes daily estradiol without known adverse side effects. Graves disease Patient was under the care of Dr. Gamboa in [place] prior to transferring to [facility]. [phone] Depression Patient switched to Prozac in December 2019 Surgical History Status post hysterectomy History of lobectomy of thyroid Family History Father Cancer Breast cancer Graves disease Unknown Cancer Social History (Updated 11/14/24 @ 14:04 by Gavin Valerio MD) Smoking and tobacco/nicotine status: former use of tobacco/nicotine Second hand smoke exposure: No Alcohol intake: never Substance/Drug Use: never Vitals/I&O/Wt Last Vital Signs Temp 97.6 F 11/14/24 10:40 Pulse 70 11/14/24 10:40 Resp 18 11/14/24 10:40 BP 93/61 11/14/24 10:40 Pulse Ox 94 11/14/24 10:40 O2 Del Method Room Air 11/14/24 10:40 O2 Flow Rate 2 11/14/24 10:40 11/13/24 11/14/24 11/14/24 22:59 06:59 14:59 Intake Total 100 / 100 50 / 50 Output Total 1050 / 1050 Balance 100 / 100 -1000 / -1000 Weight last 48 hrs Weight 68.039 kg Physical Exam Narrative: Awake and alert, working with PT. Const: COMMON NORMALS: patient oriented x3 and alert GENERAL APPEARANCE: cooperative ORIENTATION/CONSCIOUSNESS: Yes awake HENMT: COMMON NORMALS: oropharynx normal Neck/C-Spine: COMMON NORMALS: no JVD Resp: COMMON NORMALS: normal respiratory effort and clear to auscultation bilaterally AUSCULTATION: clear to auscultation bilaterally Cardio: COMMON NORMALS: no JVD, regular rhythm, S1 normal heart sound present, S2 normal heart sound present and No murmurs present (Cardio) RHYTHM: regular rhythm HEART SOUNDS: S1 normal heart sound present and S2 normal heart sound present GI: COMMON NORMALS: Normal to inspection, nondistended, normoactive bowel sounds present, Soft to palpation and non-tender PALPATION: Yes Soft to palpation Extremity: COMMON NORMALS: no joint enlargement and no pedal edema NARRATIVE EXTREMITY EXAM: R knee surg dressing cool pack Neuro: COMMON NORMALS: patient oriented x3 and moves all extremities SENSORIUM/ORIENTATION: Yes alert Skin: COMMON NORMALS: no rashes or lesions noted GENERAL SKIN EXAM: no rashes or lesions noted Urinary Catheter Management: Pérez: Cath Placed During This Visit: yes Urinary Catheter Date of Insertion: 11/14/24 Urinary Catheter Time of Insertion: 07:26 Data 11/14/24 06:25 11/14/24 06:25 A&P Assessment and plan (1) S/P knee replacement: Status-post right total knee arthroplasty performed with spinal anesthesia; estimated blood loss 25 mL. Patient is clinically stable with plans for next-day discharge. She is awake and alert, doing well after surgery. Undergoing assessment by PT. Tentative discharge plan is home tomorrow. Plans are for starting Eliquis tomorrow for VTE prophylaxis. Discussed with her bleeding risk with combination with anticoagulation together with SSRI and tramadol. She is okay to switch away from tramadol to a different pain medicine. Currently has ordered oxycodone as needed. Monitor for risk of constipation as she has been having difficulties with a recently. Bowel regimen. Reviewed vitals, CBC, BMP, orthopedic surgery note. - Repeat blood counts. - Discharge home tomorrow if clinically stable - Provide incentive spirometer for pulmonary hygiene - Start apixaban (Eliquis) tomorrow for VTE prophylaxis per orthopedic team - IS Plan Pain management ? knee pain : Current regimen includes tramadol; concern for bleeding risk when combined with apixaban and escitalopram. - Discontinue tramadol - Initiate alternative analgesic (e.g., hydrocodone) per discussion with patient Medication-related bleeding risk : Polypharmacy with apixaban, escitalopram, and potential tramadol increases bleeding risk. - Hold tramadol to minimize additive bleeding risk - Educate patient to monitor for hematuria, melena, or other bleeding signs - Reassess bleeding risk daily while hospitalized Constipation : Patient reports constipation History of Graves': Hypothyroidism. Continue thyroid supplement. Depression: Continue escitalopram Former smoker: No longer smokes. Requests for nicotine patch. PDMP PDMP Reviewed: Not Reviewed Consult Attestations Medical Necessity Statement: Continue hospitalization for postoperative care after right knee replacement. Post discharge planning and arrangements. and High MDM includes described risk of complication, morbidity or mortality of management as documented Diagnoses S/P knee replacement Z96.659
[2024-11-14] MEDS: oxyCODONE 5 mg IR Tab/Cap PO ×3 (13:52→22:25)
[2024-11-14] MEDS: chlorhexidine gluconate 0.12% Btl 473 mL 30 ML MUCOUS MEM ×3 (13:53→22:17)
[2024-11-14] MEDS: tranexamic acid 1,000 MG/100 ML PREMIX 600 MG IV (13:55)
[2024-11-14] MEDS: polyethylene glycol 3350 Pkt 17 gm PO (15:29)
[2024-11-14] MEDS: mupirocin oint 22 gm 1 APPLIC NASAL (18:26)
[2024-11-14] MEDS: sennosides-docusate Tablet 2 TAB PO (18:26)
[2024-11-14] MEDS: calcium carb-vit d 600mg/400unit 1 Tablet 1 EACH PO (18:26)
[2024-11-15] MEDS: HYDROmorphone 0.5 MG/0.5 ML INJ IVP ×2 (00:54→07:24)
[2024-11-15 04:05] VITALS: BP 111/67; PULSE 57; RESP 16; TEMP 36.4; O2SAT 95
[2024-11-15 04:13] LABS: Hematocrit 40.8 % (36-47); Hemoglobin 13.40 g/dL (11.27-16.99); Mean Corpuscular HGB Conc 32.8 g/dL (30-55); Mean Corpuscular Hemoglobin 30.5 pg (27-33); Mean Corpuscular Volume 92.9 fl (85-98); Nucleated Red Blood Cells % 0 %; Platelet Count 251 10^3/cmm (157-399); Red Blood Count 4.39 10^6/uL (3.85-5.65); White Blood Count 20.81 10^3/uL (3.29-11.43)
[2024-11-15 04:31] LABS: Anion Gap 14.3 (5-19); Blood Urea Nitrogen 12 mg/dL (6-20); Calcium 9.1 mg/dL (8.5-10.5); Carbon Dioxide 25 mmol/L (22-29); Chloride 104 mmol/L (98-107); Creatinine Clr Calc Pharmacy 91.2830; Glucose 123 mg/dL (65-115); Osmolality Calculated 289 mOsm/kg (285-295); Potassium 4.3 mmol/L (3.5-5.1); Sodium 139 mmol/L (136-145)
[2024-11-15 06:02] VITALS: RESP 15
[2024-11-15] MEDS: oxyCODONE 5 mg IR Tab/Cap PO ×2 (06:02→10:14)
[2024-11-15] MEDS: acetaminophen 1,000 MG/100 ML PIGGYBACK 400 MG IV (07:20)
[2024-11-15] MEDS: ceFAZolin 2,000 MG in sodium chloride 0.9% (plus) 50 ML 100 MG IV (07:52)
--- NOTE | 2024-11-15 08:32 | P.PN_ITS ---
Subjective 2 Subjective: She was having some pain this morning in her right knee requiring both oral and IV pain medication. Pain has since abated. Denies any trouble breathing, shortness of breath, cough, or other discomfort. Vitals/I&O/Wt Last Vital Signs Temp 97.5 F L 11/15/24 04:05 Pulse 57 L 11/15/24 04:05 Resp 15 11/15/24 06:02 BP 111/67 11/15/24 04:05 Pulse Ox 95 11/15/24 04:05 O2 Del Method Room Air 11/15/24 04:05 O2 Flow Rate 2 11/14/24 11:43 11/14/24 11/15/24 11/15/24 22:59 06:59 14:59 Intake Total 1300 / 1350 100 / 1450 Output Total 2700 / 3950 575 / 4525 Balance -1400 / -2600 -475 / -3075 Weight last 48 hrs Weight 68.039 kg Physical Exam 2 Narrative: Accompanied by her life partner. Const: COMMON NORMALS: patient oriented x3 and alert GENERAL APPEARANCE: c ooperative ORIENTATION/CONSCIOUSNESS: Yes awake HENMT: COMMON NORMALS: oropharynx normal Neck/C-Spine: COMMON NORMALS: no JVD Resp: COMMON NORMALS: normal respiratory effort and clear to auscultation bilaterally AUSCULTATION: clear to auscultation bilaterally Cardio: COMMON NORMALS: no JVD, regular rhythm, S1 normal heart sound present, S2 normal heart sound present and No murmurs present (Cardio) RHYTHM: regular rhythm HEART SOUNDS: S1 normal heart sound present and S2 normal heart sound present GI: COMMON NORMALS: Normal to inspection, nondistended, normoactive bowel sounds present, Soft to palpation and non-tender PALPATION: Yes Soft to palpation Extremity: COMMON NORMALS: no joint enlargement and no pedal edema N ARRATIVE EXTREMITY EXAM: R knee elastic bandage. Without edema. cool pack Neuro: COMMON NORMALS: patient oriented x3 and moves all extremities S ENSORIUM/ORIENTATION: Yes alert Skin: COMMON NORMALS: no rashes or lesions noted GENERAL SKIN EXAM: no rashes or lesions noted Urinary Catheter Management: Pérez: Cath Placed During This Visit: yes, but has since been removed by the nurse Reason for Continuing Indwelling Catheter: Decision to DC Catheter Urinary Catheter Date of Insertion: 11/14/24 Urinary Catheter Time of Insertion: 07:26 Date Urinary Catheter Removed: 11/14/24 Time Urinary Catheter Discontinued: 22:19 Data 11/15/24 04:04 11/15/24 04:04 A&P Assessment and plan (1) S/P knee replacement: Reviewed vitals, CBC, BMP, discussed with her leukocytosis, reviewed hemoglobin is normal. With some decline from prior down to 13.4. She is also follow-up with primary provider for reassessment. Instructed to continue incentive spirometer. Discontinue tramadol at this time while on blood thinner combined with escitalopram. Short course of hydrocodone is provided, risks as per discussion yesterday including constipation, bowel regimen is added. Pending orthopedic reassessment prior to discharge. Plan Pain management ? knee pain : Current regimen includes tramadol; concern for bleeding risk when combined with apixaban and escitalopram. - Discontinue tramadol - Initiate alternative analgesic (e.g., hydrocodone) per discussion with patient Medication-related bleeding risk : Polypharmacy with apixaban, escitalopram, and potential tramadol increases bleeding risk. - Hold tramadol to minimize additive bleeding risk - Educate patient to monitor for hematuria, melena, or other bleeding signs - Reassess bleeding risk daily while hospitalized Constipation : Patient reports constipation History of Graves': Hypothyroidism. Continue thyroid supplement. Depression: Continue escitalopram Former smoker: No longer smokes. Requests for nicotine patch. PDMP PDMP Reviewed: Last Reviewed 11/15/24 09:32 EDT by Gavin Valerio MD Attestations 2 Medical Necessity Statement*: Likely return home. and High MDM includes described risk of complication, morbidity or mortality of management as documented Diagnoses S/P knee replacement Z96.659
[2024-11-15] MEDS: sennosides-docusate Tablet 2 TAB PO (08:50)
[2024-11-15] MEDS: chlorhexidine gluconate 0.12% Btl 473 mL 30 ML MUCOUS MEM (08:50)
[2024-11-15] MEDS: multivitamin therapeutic Tablet 1 TAB PO (08:51)
[2024-11-15] MEDS: polyethylene glycol 3350 Pkt 17 gm PO (08:51)
[2024-11-15] MEDS: mupirocin oint 22 gm 1 APPLIC NASAL (08:51)
[2024-11-15] MEDS: calcium carb-vit d 600mg/400unit 1 Tablet 1 EACH PO (08:51)
[2024-11-15 10:14] VITALS: RESP 17
[2024-11-15 10:22] VITALS: BP 125/76; PULSE 74; RESP 17; TEMP 36.8; O2SAT 98
--- NOTE | 2024-11-15 13:28 | P.DS_ITS ---
Discharge Providers Date of Admission: 11/14/24 09:00 Date of Discharge: November 15, 2024 Attending Provider at Admission: Nico Rosado DO Attending Provider at Discharge: Nico Rosado DO Consults: Hospitalist?Dr. Valerio Primary Care Provider: Aly Baron MD Diagnoses at Discharge Discharge Diagnosis (1) S/P knee replacement: Status: Acute Reason for Visit Reason for Visit: M17.11 Brief History: Status post right total knee arthroplasty?[place] robotic assisted Hospital Course Hospital Course Patient presented to the preoperative holding area with plan for right total knee arthroplasty after patient has been worked up in the outpatient setting for failed conservative treatment of right knee degenerative joint disease. Once cleared by anesthesia for surgery patient subsequently was taken back to the operative suite underwent anesthesia per anesthesia department and then subsequently underwent a right total knee arthroplasty. Procedure was performed without any complications patient was taken to PACU in stable condition patient recovered well in PACU and then was admitted to the floor postoperatively internal medicine was consulted and on board for medical management and assistance with care. Patient received appropriate PT/OT, postoperative antibiotics, postoperative TXA, pain control, postoperative DVT prophylaxis. Elevation and ice. Patient encouraged for knee range of motion allowed weightbearing as tolerated to the operative lower extremity. Dressing was changed as needed, labs were monitored daily. Patient recovered well postoperatively and worked well and progressed well with therapy. It was determined on postoperative day 1 the patient was stable for discharge from an orthopedic standpoint and medicine. Patient was comfortable with discharge and plan was discharged home. Patient received appropriate discharge instructions as well as pain medication and DVT prophylaxis postoperatively. Given appropriate instructions for dressing management. Patient will follow-up with Dr. Rosado/orthopedics in the office in 2 weeks. All questions answered. Understand if there is any issues questions or concerns and contact the office. Physical Exam Narrative: Right knee examination: Dressing on in place, clean dry and intact. No evidence of saturation. Patient has normal postoperative swelling and tenderness to palpation to the knee. Compartments are soft compressible,'s calf soft and nontender. Sensations intact to light touch distally. Distal pulses are palpable. Patient is able to wiggle toes as well as plantarflex and dorsiflex ankle. Urinary Catheter Management: Pérez: Cath Placed During This Visit: yes, but has since been removed by the nurse Reason for Continuing Indwelling Catheter: Decision to DC Catheter Urinary Catheter Date of Insertion: 11/14/24 Urinary Catheter Time of Insertion: 07:26 Date Urinary Catheter Removed: 11/14/24 Time Urinary Catheter Discontinued: 22:19 Discharge Data Studies Completed and Pending Completed Studies During Hospitalization Category Date Time Status XR knee RT 1-2V 88342 Routine Exams 11/14/24 09:13 Completed Pending at discharge Category Date Time Status Basic Metabolic Panel AM LABS Lab 11/16/24 04:00 Ordered Basic Metabolic Panel AM LABS Lab 11/17/24 04:00 Ordered Complete Blood Count w/Auto AM LABS Lab 11/16/24 04:00 Ordered Complete Blood Count w/Auto AM LABS Lab 11/17/24 04:00 Ordered Radiology Impressions Knee X-Ray 11/14/24 09:13 IMPRESSION: Total right knee arthroplasty without abnormality. Laboratory Results WBC 20.81 10^3/uL (3.29-11.43) H 11/15/24 04:04 RBC 4.39 10^6/uL (3.85-5.65) 11/15/24 04:04 Hgb 13.40 g/dL (11.27-16.99) 11/15/24 04:04 Hct 40.8 % (36-47) 11/15/24 04:04 MCV 92.9 fl (85-98) 11/15/24 04:04 MCH 30.5 pg (27-33) 11/15/24 04:04 MCHC 32.8 g/dL (30-55) 11/15/24 04:04 RDW 11.8 % (12.1-15.1) L 11/15/24 04:04 Plt Count 251 10^3/cmm (157-399) 11/15/24 04:04 MPV 11.2 fL (7.4-10.4) H 11/15/24 04:04 Neut % (Auto) 83.3 % 11/15/24 04:04 Lymph % (Auto) 11.9 % 11/15/24 04:04 [place] % (Auto) 4.2 % 11/15/24 04:04 Eos % (Auto) 0.0 % 11/15/24 04:04 Baso % (Auto) 0.1 % 11/15/24 04:04 Neut # (Auto) 17.33 10^3/uL (1.8-7.7) H 11/15/24 04:04 Lymph # (Auto) 2.5 10^3/uL (0.8-4.8) 11/15/24 04:04 [place] # (Auto) 0.9 10^3/uL (0.2-0.9) 11/15/24 04:04 Eos # (Auto) 0.0 10^3/uL (0.0-0.8) 11/15/24 04:04 Baso # (Auto) 0.0 10^3/uL (0.0-0.1) 11/15/24 04:04 Nucleated RBC % (auto) 0 % 11/15/24 04:04 Nucleated RBCs # 0.0 /100WBC 11/15/24 04:04 Sodium 139 mmol/L (136-145) 11/15/24 04:04 Potassium 4.3 mmol/L (3.5-5.1) 11/15/24 04:04 Chloride 104 mmol/L (98-107) 11/15/24 04:04 Carbon Dioxide 25 mmol/L (22-29) 11/15/24 04:04 Anion Gap 14.3 (5-19) 11/15/24 04:04 BUN 12 mg/dL (6-20) 11/15/24 04:04 Creatinine 0.6 mg/dL (0.5-0.9) 11/15/24 04:04 GFR Calculation 102.3 mL/min (90-130) 11/15/24 04:04 Glucose 123 mg/dL (65-115) H 11/15/24 04:04 Calculated Osmolality 289 mOsm/kg (285-295) 11/15/24 04:04 Calcium 9.1 mg/dL (8.5-10.5) 11/15/24 04:04 Blood Type A Positive 11/14/24 06:25 Rho(D) Type Rh positive 11/14/24 06:25 Antibody Screen Negative 11/14/24 06:25 Vitals Last Vital Signs Temp 98.2 F 11/15/24 10:22 Pulse 74 11/15/24 10:22 Resp 17 11/15/24 10:22 BP 125/76 11/15/24 10:22 Pulse Ox 98 11/15/24 10:22 O2 Del Method Room Air 11/15/24 10:22 O2 Flow Rate 2 11/14/24 11:43 Discharge Plan Discharge Patient Disposition: Home Health Service Condition: Stable Prescriptions: New ondansetron 4 mg tablet,disintegrating 4 mg PO Q8H PRN (Reason: nausea and vomiting) 3 Days Qty: 9 0RF Eliquis 2.5 mg tablet 2.5 mg PO BID 14 Days Qty: 28 0RF hydrocodone-acetaminophen 5-325 mg tablet 1 tab PO Q8H PRN (Reason: pain) Qty: 10 0RF polyethylene glycol 3350 17 gram Powder In Packet 17 g PO BID Qty: 30 2RF cefadroxil 500 mg capsule 500 mg PO BID 7 Days Qty: 14 0RF Continued methocarbamol 500 mg tablet 500 mg PO TID 14 Days Qty: 42 0RF escitalopram oxalate 20 mg tablet 20 mg PO QDAY thyroid (pork) [[place] Thyroid] 90 mg tablet 90 mg PO DAILY Rx Instructions: TAKE 1 TABLET BY MOUTH DAILY Discontinued tramadol 50 mg tablet 50 mg PO Q4H PRN (Reason: pain) 5 Days Qty: 30 0RF Discharge Orders: Discharge Order (Routine); Ordered 11/15/24 Ordered By: Gavin Valerio Other Ambulatory Orders: DME: Walker (Order) Location: None Selected Ordered By: Nico Rosado Referrals: [facility] Home Care ([facility]) [Outside] Aly Baron MD [Primary Care Provider, [facility]] - 12/23/24 1:30 pm Referral Note: * Your follow up appointment is on 11/22/2024 at 1:30pm with Dr. Baron. Ryan Rosado PA [Physician [employer], Orthopedics] - 11/29/24 8:15 am Discharge Diet: Regular Discharge Activity: Limit activity as instructed Patient Instructions: Hydrocodone/Acetaminophen (By mouth), Acute Wound Care (DC), Precautions after Total Joint Replacement Surgery (DC), Total Knee Replacement (DC), OB Discharge Report, OB Food/Drug Interaction Guide, Opioid Safety, Post Anesthesia Care, Patient Portal & Doug Instructions Activity Restrictions/Additional Instructions: Orthopedic discharge instructions: Keep incisions clean dry and intact, leave [place] bandage dressings on in place for 7 days after that may rinse incisions with warm soapy water pat dry and redress with a dry dressing. Patient may weight-bear as tolerate to the operative extremity Utilize walker as needed Encourage knee range of motion Ice and elevate as needed for pain and swelling Take pain medication as prescribed Take antinausea medication as needed Take antibiotic as prescribed Pain medication can cause constipation. take [id number] stool softeners and or MiraLAX. Take prescribed Eliquis twice daily for the next 14 days for blood clot prevention May supplement for pain with Tylenol hzoc-suc-fucntcd as needed(1000 mg every 8 hours-do not exceed more than 3000mg in 24-hour period) No baths or soaks Follow-up in the orthopedic office in 2 weeks Contact the office for any questions or concerns Please stop tramadol for now due to risk of bleeding combined with escitalopram and blood thinner medication. Please follow-up with primary provider for reassessment after knee surgery and of your blood counts. Discharge Attestations Time Spent in Discharge Care*: less than 30 min Quality Metrics Clinical Quality Measures [ No reported AMI, CVA or VTE this stay] Coding Level of Care Code Acute Code for Chg Fwd Diagnoses S/P knee replacement Z96.659 Time Spent (min) 20
[2024-11-15 13:30] VITALS: BP 120/76; PULSE 70; RESP 17; TEMP 36.7; O2SAT 98
--- NOTE | 2024-11-15 15:49 | PC.NURSE ---
pt came to L&D desk after pt was discharged at approx.1500 due to pt reporting 10/10 pain at home, pt did not know what to do for her, this nurse has called @ [phone] and again @ [phone] no answer left voicemail of pt pain 10/10. this nurse called Ryan JACINTO of pt problem and needing a plan for pain, this nurse explained that pt went home on [place] 5/325 and was taking Oxy IR 5mg as an inpatient. Ryan JACINTO will call and a nurse will call the pt back for more information. This nurse called Miki [phone] pt that he should expect a phone call from Ortho with a plan for pain management.
--- NOTE | 2024-11-15 16:58 | PC.NURSE ---
Called in a prescription of Oxycodone to [facility], stop [place] and take a stool softener as well. [phone] this nurse called pt to let her know that oxycodone was sent to [facility] pharmacy and to have her pick it up, educated pt to stop taking the norco and to take oxycodone. pt verbalized understanding
== END 2024-11-15 13:35 | disposition home health service (06) ==
LOC: OBGYN 09:01
PROVIDERS: Physician Assistant; Admitting Provider Student in an Organized Health Care Education/Training Program; PCP Family Medicine; Visit Provider Student in an Organized Health Care Education/Training Program
PROC: 8E0Y0CZ Robotic Assisted Procedure of Lower Extremity, Open Approach (ICD-10-PCS; CPT 27447; principal; 2024-11-14 07:00)
DX: M17.11 Unilateral primary osteoarthritis, right knee (principal); F41.8 Other specified anxiety disorders; E03.9 Hypothyroidism, unspecified; F17.200 Nicotine dependence, unspecified, uncomplicated; E05.00 Thyrotoxicosis with diffuse goiter without thyrotoxic crisis or storm
CPT/HCPCS: 27447; 20985; 36415; 51702; 73560; 80048; 85025; 86850; 86900; 97110; 97116; 97161; 97165; A4216; C1713; C1776; G0378; J0131; J0171; J0690; J1171; J1885; J2250; J2371; J2704; J2795; J3010; J3490; J7030; J7120; J9999; L8699

== ENCOUNTER → 2024-11-29 08:11 | Outpatient (BNVA) | payer OTHER, SELFPAY | PROVIDERS: PCP Family Medicine; Visit Provider Physician Assistant | DX: Z96.651 Presence of right artificial knee joint (principal) | CPT/HCPCS: 73560; 73565 ==

== ENCOUNTER 2024-12-06 06:47 | Outpatient (RCR) | payer OTHER, SELFPAY | END 2024-12-15 23:59 | disposition home or self-care (01) | LOC: SPT 06:47 | PROVIDERS: Visit Provider Physician Assistant | DX: Z47.1 Aftercare following joint replacement surgery (principal); Z96.651 Presence of right artificial knee joint | CPT/HCPCS: 97110; 97161 ==

== ENCOUNTER 2024-12-16 06:00 | Outpatient (RCR) | payer OTHER, SELFPAY | END 2025-01-15 23:59 | disposition home or self-care (01) | LOC: SPT 06:00 | PROVIDERS: Visit Provider Physician Assistant | DX: Z47.1 Aftercare following joint replacement surgery (principal); Z96.651 Presence of right artificial knee joint | CPT/HCPCS: 97110 ==

== ENCOUNTER → 2025-01-10 08:59 | Outpatient (BNVA) | payer OTHER, SELFPAY | PROVIDERS: PCP Family Medicine; Visit Provider Student in an Organized Health Care Education/Training Program | DX: Z96.651 Presence of right artificial knee joint (principal) | CPT/HCPCS: 73560; 73565 ==

== ENCOUNTER 2025-01-16 06:30 | Outpatient (RCR) | payer OTHER, SELFPAY | END 2025-02-14 23:59 | disposition home or self-care (01) | LOC: SPT 06:30 | PROVIDERS: PCP Family Medicine; Visit Provider Physician Assistant | DX: Z47.1 Aftercare following joint replacement surgery (principal); Z96.651 Presence of right artificial knee joint | CPT/HCPCS: 97110 ==

== ENCOUNTER → 2025-02-28 14:12 | Outpatient (BNVA) | payer OTHER, SELFPAY | PROVIDERS: PCP Family Medicine; Visit Provider Student in an Organized Health Care Education/Training Program | DX: Z96.651 Presence of right artificial knee joint (principal); Z01.89 Encounter for other specified special examinations | CPT/HCPCS: 73560; 73565 ==

== ENCOUNTER 2025-05-01 08:00 | Outpatient (CLI) | payer OTHER, SELFPAY ==
--- NOTE | 2025-05-01 08:04 | MM_ITS ---
WS: [id number] BILATERAL SCREENING DIGITAL TOMOSYNTHESIS MAMMOGRAM WITH CAD HISTORY: SCREENING COMPARISON: 12/23/2023, 11/20/2020, 07/04/2019 Bilateral CC and MLO views with tomosynthesis and synthetic mammography submitted. Computer aided detection analyzed. Breast composition: The breasts are heterogeneously dense, which may obscure small masses. No suspicious masses, microcalcifications or architectural distortion. MM/MM scr BI tomosynthesis [id number] IMPRESSION: BI-RADS: 1 - Negative FOLLOW UP: 1 Year Follow-up
== END 2025-05-01 08:01 | disposition home or self-care (01) ==
LOC: RAD 08:00
PROVIDERS: PCP Family Medicine; Visit Provider Family Medicine
DX: Z12.31 Encounter for screening mammogram for malignant neoplasm of breast (principal); R92.333 Mammographic heterogeneous density, bilateral breasts
CPT/HCPCS: 77063; 77067